=== PATIENT | male | born 1995 ===

== ENCOUNTER 2017-02-28 23:06 | Observation (INO) | payer OTHER ==
[~2017-02-28] VITALS: Ht 182.9 cm; Wt 89.8 kg
[2017-02-28] MEDS ORDERED: ONDANSETRON INJ 2 MG/ML 2 ML VIAL IV STA (23:57)
[2017-02-28] MEDS ORDERED: SODIUM CHLORIDE 0.9% 1000ML 1,000 ML IV STA (23:57)
[2017-02-28] MEDS ORDERED: MoRPHine SULFATE 10 MG/ML CARP/VIAL IV STA (23:57)
[2017-03-01] MEDS ORDERED: FINA5TAB4 PO (00:09)
[2017-03-01] MEDS ORDERED: CETI10TA84 PO (00:09)
[2017-03-01] MEDS ORDERED: MoRPHine SULFATE 2 MG/ML CARP ONE (00:09)
[2017-03-01] MEDS ORDERED: MoRPHine SULFATE 4 MG/ML 1 ML CARP\\VIAL ONE (00:10)
[2017-03-01 00:11] LABS: BASO % 0.1 %; BASO ABS # 0.02 K/uL (0-0.2); COMPLETE YES; EOS % 0.4 %; HEMATOCRIT 45.1 % (42-52); IG% 0.2 %; LYMPH % 13.6 %; LYMPH ABS # 1.86 K/uL (1.2-3.4); MEAN CELL VOLUME 86.9 fL (80-100); MEAN CORPUSCULAR HEMOGLOBIN 29.7 pg (25-34); MEAN CORPUSCULAR HGB CONC 34.1 g/dl (32-36); MEAN PLATELET VOLUME 10.5 fL (7.4-10.4); MONO % 5.2 %; NEUT % 80.5 %; PLATELET COUNT 176 K/uL (130-400); RED BLOOD COUNT 5.19 M/uL (4.7-6.1); WHITE BLOOD COUNT 13.67 K/uL (4.8-10.8)
[2017-03-01] MEDS ORDERED: OPTIRAY 320 IV PRN (00:15)
[2017-03-01 00:28] LABS: BUN/CREATININE RATIO 13.9 (10-20); CALCIUM 9.3 mg/dl (8.5-10.1); CREATININE 1.2 mg/dl (0.60-1.40); POTASSIUM 3.4 mmol/L (3.5-5.1)
[2017-03-01 00:31] LABS: ALB/GLOB RATIO 1.3 (0.9-2)
[2017-03-01] MEDS ORDERED: HYDROmorphone INJ 0.5 MG/0.5 ML SYR IV STA (00:36)
--- NOTE | 2017-03-01 02:33 | EMERGENCY ROOM VISIT NOTE ---
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 The patient reports that he has had intense pain in the right lower abdomen which began approximately 3 hours ago. He reports it has gradually worsened. He states that he has had associated shivering. The pain is worse when he is lying down or standing. He rates the discomfort a 9/10. He denies any nausea, vomiting, changes in bowel movements or urinary symptoms. He denies fevers/chills. He denies any history of abdominal surgery. Review of Systems A complete 10-point Review of Systems was discussed with the patient, with pertinent positives and negatives listed in the History of Present Illness. All remaining Review of Systems questions can be considered negative unless otherwise specified. Past Medical/Surgical History Medical Problems: (1) Acute appendicitis Social History Smoking Status: Never Smoker Current/Historical Medications Scheduled Cetirizine (Zyrtec), 10 MG PO DAILY Finasteride (Proscar), 5 MG PO DAILY Allergies Coded Allergies: No Known Allergies (Unverified , 03/01/17) Physical Exam Vital Signs Date Time Temp Pulse Resp B/P Pulse Ox O2 Delivery O2 Flow Rate FiO2 03/01/17 05:10 81 20 130/81 100 03/01/17 03:30 89 18 134/76 99 Room Air 03/01/17 01:08 96 16 161/103 98 Room Air 02/28/17 23:11 36.3 100 18 147/77 99 Room Air Physical Exam VITALS: Vitals are noted on the nurse's note and reviewed by myself. Vital signs stable. GENERAL: This is a 21-year-old male, in no acute distress but appears to be in pain, nondiaphoretic, well-developed well-nourished. SKIN: Capillary reflex less than 2 seconds. HEENT: Normocephalic. PERRLA. EOMI. Nares patent. Mucous membranes moist. Neck is supple without nuchal rigidity. HEART: Regular rate and rhythm without murmurs gallops or rubs. LUNGS: Clear to auscultation bilaterally without wheezes, rales or rhonchi. ABDOMEN: Positive bowel sounds x 4. Soft, nondistended. There is moderate tenderness to palpation of the right lower quadrant. No guarding or rebound tenderness. NEURO: Patient was alert and oriented to person place and time. Medical Decision & Procedures ER Provider Diagnostic Interpretation: CT ABDOMEN & PELVIS: The appendix is dilated to approximately 1.1 cm in caliber. There is periappendiceal edema and minimal wall thickening. Findings are compatible with acute appendicitis. No definite evidence for abscess formation or perforation at this time. Remainder of examination shows no definite evidence for additional acute inflammatory process. Radiologist: Jaspal Larson MD Laboratory Results 02/28/17 23:55 Red Blood Count 5.19, Mean Corpuscular Volume 86.9, Mean Corpuscular Hemoglobin 29.7, Mean Corpuscular Hemoglobin Concent 34.1, Mean Platelet Volume 10.5, Neutrophils (%) (Auto) 80.5, Lymphocytes (%) (Auto) 13.6, Monocytes (%) (Auto) 5.2, Eosinophils (%) (Auto) 0.4, Basophils (%) (Auto) 0.1, Neutrophils # (Auto) 10.99, Lymphocytes # (Auto) 1.86, Monocytes # (Auto) 0.71, Eosinophils # (Auto) 0.06, Basophils # (Auto) 0.02 02/28/17 23:55 Test 02/28/17 23:55 02/28/17 23:58 White Blood Count 13.67 K/uL (4.8-10.8) Red Blood Count 5.19 M/uL (4.7-6.1) Hemoglobin 15.4 g/dL (14.0-18.0) Hematocrit 45.1 % (42-52) Mean Corpuscular Volume 86.9 fL (80-100) Mean Corpuscular Hemoglobin 29.7 pg (25-34) Mean Corpuscular Hemoglobin Concent 34.1 g/dl (32-36) Platelet Count 176 K/uL (130-400) Mean Platelet Volume 10.5 fL (7.4-10.4) Neutrophils (%) (Auto) 80.5 % Lymphocytes (%) (Auto) 13.6 % Monocytes (%) (Auto) 5.2 % Eosinophils (%) (Auto) 0.4 % Basophils (%) (Auto) 0.1 % Neutrophils # (Auto) 10.99 K/uL (1.4-6.5) Lymphocytes # (Auto) 1.86 K/uL (1.2-3.4) Monocytes # (Auto) 0.71 K/uL (0.11-0.59) Eosinophils # (Auto) 0.06 K/uL (0-0.5) Basophils # (Auto) 0.02 K/uL (0-0.2) RDW Standard Deviation 39.1 fL (36.4-46.3) RDW Coefficient of Variation 12.2 % (11.5-14.5) Immature Granulocyte % (Auto) 0.2 % Immature Granulocyte # (Auto) 0.03 K/uL (0.00-0.02) Anion Gap 5.0 mmol/L (3-11) Est Creatinine Clear Calc Drug Dose 107.8 ml/min Estimated GFR () 100.3 Estimated GFR (Non- 86.5 BUN/Creatinine Ratio 13.9 (10-20) Calcium Level 9.3 mg/dl (8.5-10.1) Total Bilirubin 0.5 mg/dl (0.2-1) Aspartate Amino Transf (AST/SGOT) 22 U/L (15-37) Alanine Aminotransferase (ALT/SGPT) 28 U/L (12-78) Alkaline Phosphatase 66 U/L (45-117) Total Protein 8.3 gm/dl (6.4-8.2) Albumin 4.7 gm/dl (3.4-5.0) Globulin 3.6 gm/dl (2.5-4.0) Albumin/Globulin Ratio 1.3 (0.9-2) Lipase 92 U/L (73-393) Urine Color YELLOW Urine Appearance TURBID (CLEAR) Urine pH 8.0 (4.5-7.5) Urine Specific [place] 1.022 (1.000-1.030) Urine Protein NEG (NEG) Urine Glucose (UA) NEG (NEG) Urine Ketones NEG (NEG) Urine Occult Blood NEG (NEG) Urine Nitrite NEG (NEG) Urine Bilirubin NEG (NEG) Urine Urobilinogen NEG (NEG) Urine Leukocyte Esterase NEG (NEG) Urine WBC (Auto) 0 /hpf (0-5) Urine RBC (Auto) 0-4 /hpf (0-4) Urine Hyaline Casts (Auto) 0 /lpf (0-5) Urine Epithelial Cells (Auto) 0-5 /lpf (0-5) Urine Bacteria (Auto) NEG (NEG) Medications Administered Medications (Trade) Dose Ordered Sig/Rosio Route Start Time Stop Time Status Last Admin Dose Admin Sodium Chloride (Nss 1000ml) 1,000 ml @ 999 mls/hr Q1H1M STAT IV 02/28/17 23:57 03/01/17 00:57 DC 03/01/17 00:10 999 MLS/HR Ondansetron HCl (Zofran Inj) 4 mg NOW STAT IV 02/28/17 23:57 03/01/17 00:01 DC 03/01/17 00:09 4 MG Morphine Sulfate (MoRPHine SULFATE INJ) 2 mg STK-MED ONCE .ROUTE 03/01/17 00:09 03/01/17 00:10 DC 03/01/17 00:09 2 MG Morphine Sulfate (MoRPHine SULFATE INJ) 4 mg STK-MED ONCE .ROUTE 03/01/17 00:10 03/01/17 00:11 DC 03/01/17 00:10 4 MG Hydromorphone HCl (Dilaudid Inj) 0.5 mg NOW STAT IV 03/01/17 00:36 03/01/17 00:37 DC 03/01/17 00:47 0.5 MG Cefoxitin Sodium (Mefoxin IV) 2,000 mg NOW STAT IV 03/01/17 04:54 03/01/17 04:59 DC 03/01/17 04:54 2,000 MG Lidocaine HCl (Xylocaine 1% Inj (Local)) 20 ml STK-MED ONCE .ROUTE 03/01/17 05:34 03/01/17 05:35 DC 03/01/17 06:30 20 ML Bupivacaine HCl (Marcaine 0.5% MPF Inj) 30 ml STK-MED ONCE .ROUTE 03/01/17 05:34 03/01/17 05:35 DC 03/01/17 06:30 20 ML ED Course The patient was evaluated as above. Labs were drawn and IV access was obtained. Patient was medicated with 6 mg morphine IV and 4 mg Zofran IV. He was hydrated with 1 L normal saline solution. The patient was complaining of additional pain and was given 0.5 mg Dilaudid with good relief of his pain. CT scan was performed and read by radiology as above. Patient was reevaluated and IVs were discussed. Case was discussed with Dr. Valdez, who agreed to evaluate the patient for surgical intervention. Medical Decision Differential diagnosis includes appendicitis, urinary tract infection, renal calculus, pyelonephritis, cholecystitis, colitis, among others. The patient is a 21-year-old male who presents today complaining of right lower quadrant pain. Labs revealed a leukocytosis of 13.67. No concerning anemia or electrolyte abnormalities. Urinalysis was not suggestive of infection. CT scan showed findings consistent with acute appendicitis. Case was discussed with the general surgeon controlled atmospheric furnace brazer, who agreed to evaluate the patient for surgical intervention. Please see his dictation for operative record and patient disposition. The patient's case was reviewed with Dr. Mcconnell, ED attending physician, who agreed with my assessment and treatment plan. Impression Primary Impression: Acute appendicitis Departure Information Referrals [facility] (PCP) Patient Instructions My [facility]
[2017-03-01 03:03] LABS: URINE APPEARANCE TURBID (CLEAR); URINE BILIRUBIN NEG (NEG); URINE COLOR YELLOW; URINE EPITHELIAL CELL AUTO 0-5 /lpf (0-5); URINE NITRITE NEG (NEG); URINE SPECIFIC GRAVITY 1.022 (1.000-1.030); UROBILINOGEN NEG (NEG); ZZUR CULT IF INDIC CLEAN CATCH NO
[2017-03-01 03:07] LABS: MANUAL MICROSCOPIC REQUIRED? NO; REVIEW REQ? NO
[2017-03-01] MEDS ORDERED: LACTATED RINGER'S 1000ML 1,000 ML IV SCH ×2 (04:54→06:51)
[2017-03-01] MEDS ORDERED: CEFOXITIN SOD 2 GM VIAL IV STA (04:54)
--- NOTE | 2017-03-01 04:54 | History and Physical ---
History & Physical Date & Time of Service: Mar 01, 2017 at 04:47 Chief Complaint: Intense Abdominal Pains, Shivering Primary Care Physician: [facility] History of Present Illness Source: patient The patient is a 21 year old male who presents to the Emergency Room with complaints of right lower quadrant abdominal pain. The patient reports that he has had intense pain in the right lower abdomen which began approximately 3 hours ago. He reports it has gradually worsened. He states that he has had associated shivering. The pain is worse when he is lying down or standing. He rates the discomfort a 9/10. He denies any nausea, vomiting, changes in bowel movements or urinary symptoms. He denies fevers/chills. He denies any history of abdominal surgery.I exam pt and reviewed CT scan-Dx acute appendicitis, pt is still have RLQ pain,with nausea, no vomiting, I called pt dad who also agrees to do appendectomy, Social History Smoking Status: Never Smoker Smokeless Tobacco Use: No Alcohol Use: none Drug Use: none Allergies Coded Allergies: No Known Allergies (Unverified , 03/01/17) Home Medications Scheduled Cetirizine (Zyrtec), 10 MG PO DAILY Finasteride (Proscar), 5 MG PO DAILY Review of Systems Constitutional: No chills, No fatigue, No fever, No problem reported, No sweats , No weakness, No weight loss Eyes: No diplopia, No discharge, No eye pain, No problem reported, No redness, No worsening of vision ENT: No dental problems, No hearing loss, No nasal symptoms, No problem reported, No sore throat, No tinnitus, No trouble swallowing, No unusual epistaxis Respiratory: No cough, No dyspnea at rest, No dyspnea on exertion, No hemoptysis, No problem reported, No shortness of breath, No sputum, No wheezing Cardiovascular: No PND, No chest pain, No claudication, No edema, No orthopnea , No palpitations, No problem reported Abdomen: + nausea, + pain Musculoskeletal: No calf pain, No joint pain, No muscle pain, No problem reported, No swelling Genitourinary - Male: No dysuria, No hematuria, No impotence, No lesions, No penile discharge, No problem reported, No urinary frequency, No urinary hesitancy, No urinary incontinence, No urinary retention, No urinary urgency Neurologic: No balance problems, No memory loss, No numbness/tingling, No paralysis, No problem reported, No vertigo, No weakness Psychiatric: No anhedonism, No anxiety, No depression symptoms, No insomnia, No problem reported, No substance abuse Endocrine: No excessive thirst, No excessive urination, No fatigue, No problem reported Hematologic / Lymphatic: No abnormal bleeding/bruising, No clotting problems, No night sweats, No problem reported, No swollen lymph nodes Physical Exam Vital Signs Date Time Temp Pulse Resp B/P Pulse Ox O2 Delivery O2 Flow Rate FiO2 03/01/17 03:30 89 18 134/76 99 Room Air 03/01/17 01:08 96 16 161/103 98 Room Air 02/28/17 23:11 36.3 100 18 147/77 99 Room Air General Appearance: WD/WN, + mild distress Head: normocephalic Eyes: normal inspection ENT: normal ENT inspection Neck: supple, no JVD Respiratory/Chest: chest non-tender, lungs clear, normal breath sounds Cardiovascular: regular rate, rhythm, no edema, no gallop, no JVD, no murmur Abdomen/GI: + tenderness, + guarding (RLQ) Extremities/Musculoskelatal: normal inspection, no calf tenderness, normal capillary refill Neurologic/Psych: no motor/sensory deficits, alert, normal mood/affect Skin: normal color, warm/dry, no rash Diagnostics Laboratory Results Results Past 24 Hours Test 02/28/17 23:55 02/28/17 23:58 Range/Units White Blood Count 13.67 4.8-10.8 K/uL Red Blood Count 5.19 4.7-6.1 M/uL Hemoglobin 15.4 14.0-18.0 g/dL Hematocrit 45.1 42-52 % Mean Corpuscular Volume 86.9 80-100 fL Mean Corpuscular Hemoglobin 29.7 25-34 pg Mean Corpuscular Hemoglobin Concent 34.1 32-36 g/dl Platelet Count 176 130-400 K/uL Mean Platelet Volume 10.5 7.4-10.4 fL Neutrophils (%) (Auto) 80.5 % Lymphocytes (%) (Auto) 13.6 % Monocytes (%) (Auto) 5.2 % Eosinophils (%) (Auto) 0.4 % Basophils (%) (Auto) 0.1 % Neutrophils # (Auto) 10.99 1.4-6.5 K/uL Lymphocytes # (Auto) 1.86 1.2-3.4 K/uL Monocytes # (Auto) 0.71 0.11-0.59 K/uL Eosinophils # (Auto) 0.06 0-0.5 K/uL Basophils # (Auto) 0.02 0-0.2 K/uL RDW Standard Deviation 39.1 36.4-46.3 fL RDW Coefficient of Variation 12.2 11.5-14.5 % Immature Granulocyte % (Auto) 0.2 % Immature Granulocyte # (Auto) 0.03 0.00-0.02 K/uL Sodium Level 142 136-145 mmol/L Potassium Level 3.4 3.5-5.1 mmol/L Chloride Level 103 98-107 mmol/L Carbon Dioxide Level 34 21-32 mmol/L Anion Gap 5.0 3-11 mmol/L Blood Urea Nitrogen 17 7-18 mg/dl Creatinine 1.20 0.60-1.40 mg/dl Est Creatinine Clear Calc Drug Dose 107.8 ml/min Estimated GFR () 100.3 Estimated GFR (Non- 86.5 BUN/Creatinine Ratio 13.9 10-20 Random Glucose 99 70-99 mg/dl Calcium Level 9.3 8.5-10.1 mg/dl Total Bilirubin 0.5 0.2-1 mg/dl Aspartate Amino Transf (AST/SGOT) 22 15-37 U/L Alanine Aminotransferase (ALT/SGPT) 28 12-78 U/L Alkaline Phosphatase 66 45-117 U/L Total Protein 8.3 6.4-8.2 gm/dl Albumin 4.7 3.4-5.0 gm/dl Globulin 3.6 2.5-4.0 gm/dl Albumin/Globulin Ratio 1.3 0.9-2 Lipase 92 73-393 U/L Urine Color YELLOW Urine Appearance TURBID CLEAR Urine pH 8.0 4.5-7.5 Urine Specific [place] 1.022 1.000-1.030 Urine Protein NEG NEG Urine Glucose (UA) NEG NEG Urine Ketones NEG NEG Urine Occult Blood NEG NEG Urine Nitrite NEG NEG Urine Bilirubin NEG NEG Urine Urobilinogen NEG NEG Urine Leukocyte Esterase NEG NEG Urine WBC (Auto) 0 0-5 /hpf Urine RBC (Auto) 0-4 0-4 /hpf Urine Hyaline Casts (Auto) 0 0-5 /lpf Urine Epithelial Cells (Auto) 0-5 0-5 /lpf Urine Bacteria (Auto) NEG NEG Diagnostic Radiology CT scan- acute appendicitis Impression Assessment and Plan IMP: Acute appendicitis Plan, pt will have laparoscopic appendectomy, possible open , D/W benefits, risks and alternatives of the procedure, the risks- infection, bleeding, abscess , injury bowel, incisional hernia, pt understood, he agrees with the plan, I answered all questions, ASA Classification: ASA Class I Level of Care Med/Surg VTE Prophylaxis VTE Risk Assessment Done? Y/N: Yes Risk Level: Very Low Given or contraindicated: SCD's
[2017-03-01] MEDS ORDERED: ACETAMINOPHEN 325 MG TAB PO PRN ×2 (05:00→07:00)
[2017-03-01] MEDS ORDERED: OXYCODONE/ACETAMINOPHEN 5-325 TAB PO PRN ×2 (05:00→07:00)
[2017-03-01] MEDS ORDERED: HYDROmorphone INJ 1 MG/ML SYR IV PRN ×2 (05:00→05:30)
[2017-03-01] MEDS ORDERED: MIDAZOLAM HCL 1 MG/ML 2ML VIAL ONE (05:29)
[2017-03-01] MEDS ORDERED: FENTANYL CITRATE INJ 50 MCG/1 ML 2 ML VIAL ONE (05:29)
[2017-03-01] MEDS ORDERED: LABETALOL HCL IV 5 MG/ML 20ML IV PRN (05:30)
[2017-03-01] MEDS ORDERED: ONDANSETRON INJ 2 MG/ML 2 ML VIAL IV PRN ×2 (05:30→07:00)
[2017-03-01] MEDS ORDERED: EpHEDrine SULFATE INJ 50 MG/ML AMP IV PRN (05:30)
[2017-03-01] MEDS ORDERED: MEPERIDINE HCL 25 MG/ML CARP IV PRN (05:30)
[2017-03-01] MEDS ORDERED: ATROPINE SULFATE 0.1 MG/ML 5ML SYR IV PRN (05:30)
[2017-03-01] MEDS ORDERED: BUPIVACAINE 0.5 % 5 MG/1 ML MPF 30ML VIAL ONE (05:34)
[2017-03-01] MEDS ORDERED: LIDOCAINE HCL 1% 20 ML VIAL ONE (05:34)
[2017-03-01] MEDS ORDERED: BACITRACIN OINT 15 GM TUBE ONE (05:35)
[2017-03-01] MEDS ORDERED: IV FLUIDS COMPLETED PRN (06:45)
--- NOTE | 2017-03-01 06:51 | [facility] Post Operative Brief Note ---
Immediate Operative Summary Operative Date Mar 01, 2017. Pre-Operative Diagnosis Acute Appendicitis Post-Operative Diagnosis Acute Appendicitis Procedure(s) Performed Laparoscopic Appendectomy Surgeon Dr. Valdez Car Stereo Installer Surgeon(s) life science technician Estimated Blood Loss 10ml Findings acute appendicitis Fluids (cc crystalloids) 1000ml Specimens A. Appendix Drains none Anesthesia general Complication(s) None Disposition Recovery Room / PACU
[2017-03-01] MEDS ORDERED: HYDROmorphone INJ 2 MG/ML SYR/VIAL IV PRN (07:00)
[2017-03-01] MEDS ORDERED: PROPOFOL IV EMULSION 10 MG/ML 20 ML VIAL IV ONE (07:22)
[2017-03-01] MEDS ORDERED: LIDOCAINE HCL 2% 2 ML VIAL (20MG/ML) ONE (07:22)
[2017-03-01] MEDS ORDERED: ROCURONIUM BROMID 50MG/5ML SYR ONE (07:22)
[2017-03-01] MEDS ORDERED: ONDANSETRON INJ 2 MG/ML 2 ML VIAL ONE (07:23)
[2017-03-01] MEDS ORDERED: NEOSTIGMINE METHYLSULFATE 5 MG/5 ML SYR ONE (07:23)
[2017-03-01] MEDS ORDERED: GLYCOPYRROLATE INJ 0.2 MG/ML VIAL ONE (07:23)
--- NOTE | 2017-03-01 07:30 | DIAGNOSTIC IMAGING REPORT ---
ABDOMEN AND PELVIS CT WITH IV AND ORAL CONTRAST CT DOSE: 435.72 mGy.cm HISTORY: Right lower quadrant abdominal pain. TECHNIQUE: Multiaxial CT images of the abdomen and pelvis were performed following the use of intravenous and oral contrast. COMPARISON STUDY: None. FINDINGS: The lung bases are clear. The liver, spleen, gallbladder, pancreas, kidneys, and adrenal glands are within normal limits. No bowel wall thickening or obstruction. The pelvic organs are unremarkable. No suspicious lytic or blastic osseous lesions. The appendix measures up to 9 mm in diameter. There is mild appendiceal wall thickening and mild periappendiceal fat stranding/edema. Therefore, these findings are consistent with acute appendicitis. No perforation or abscess identified at this time. No retroperitoneal lymphadenopathy. IMPRESSION: Acute appendicitis. Electronically signed by: Juaquin Mcmillan M.D. 03/01/2017 7:28 AM Dictated Date/Time: 03/01/2017 7:25 AM
[2017-03-01] MEDS: FENTANYL CITRATE INJ 50 MCG/1 ML 2 ML VIAL IV PRN ×2 (07:35→07:40)
--- NOTE | 2017-03-01 07:55 | Anesthesiology Progress Note ---
Anesthesia Post Op Note Date & Time Mar 01, 2017 at 07:54 Vital Signs Pain Intensity: 4 Vital Signs Past 12 Hours Date Time Temp Pulse Resp B/P Pulse Ox O2 Delivery O2 Flow Rate FiO2 03/01/17 07:45 76 15 127/73 100 Nasal Cannula 2 03/01/17 07:35 75 15 136/80 99 Nasal Cannula 2 03/01/17 07:25 83 12 139/85 100 Nasal Cannula 2 03/01/17 07:15 83 21 150/89 100 Nasal Cannula 2 03/01/17 07:07 37.0 75 19 147/89 100 Mask 10 03/01/17 05:10 81 20 130/81 100 03/01/17 03:30 89 18 134/76 99 Room Air 03/01/17 01:08 96 16 161/103 98 Room Air 02/28/17 23:11 36.3 100 18 147/77 99 Room Air Notes Mental Status: alert / awake / arousable, participated in evaluation Pt Amnestic to Procedure: Yes Nausea / Vomiting: adequately controlled Pain: adequately controlled Airway Patency, RR, SpO2: stable & adequate BP & HR: stable & adequate Hydration State: stable & adequate Anesthetic Complications: no major complications apparent
[2017-03-01 08:10] VITALS: O2SAT 96; Ht 182.9 cm; Wt 89.8 kg
[2017-03-01 08:40] VITALS: BP 135/89; PULSE 69; O2SAT 98
--- NOTE | 2017-03-01 08:58 | Surgery Progress Note ---
Surgery Progress Note Date of Service Mar 01, 2017. Subjective Post OP Day: + feeling well S/P laparoscopic appendectomy pt is doing fine, no C/O, Objective Vital Signs: Date Time Temp Pulse Resp B/P Pulse Ox O2 Delivery O2 Flow Rate FiO2 03/01/17 08:40 69 16 135/89 98 Room Air 03/01/17 07:55 36.9 74 13 132/69 100 Nasal Cannula 2 03/01/17 07:45 76 15 127/73 100 Nasal Cannula 2 03/01/17 07:35 75 15 136/80 99 Nasal Cannula 2 03/01/17 07:25 83 12 139/85 100 Nasal Cannula 2 03/01/17 07:15 83 21 150/89 100 Nasal Cannula 2 03/01/17 07:07 37.0 75 19 147/89 100 Mask 10 03/01/17 05:10 81 20 130/81 100 03/01/17 03:30 89 18 134/76 99 Room Air 03/01/17 01:08 96 16 161/103 98 Room Air 02/28/17 23:11 36.3 100 18 147/77 99 Room Air General Appearance: WD/WN Head: normocephalic Neck: supple, thyroid normal Respiratory/Chest: chest non-tender, lungs clear Cardiovascular: regular rate, rhythm, no edema, no JVD Abdomen: normal bowel sounds, non tender, non distended, soft Incision(s): clean, dry, intact Extremities: normal range of motion, non-tender, normal inspection Laboratory Results: Results Past 24 Hours Test 02/28/17 23:55 02/28/17 23:58 Range/Units White Blood Count 13.67 4.8-10.8 K/uL Red Blood Count 5.19 4.7-6.1 M/uL Hemoglobin 15.4 14.0-18.0 g/dL Hematocrit 45.1 42-52 % Mean Corpuscular Volume 86.9 80-100 fL Mean Corpuscular Hemoglobin 29.7 25-34 pg Mean Corpuscular Hemoglobin Concent 34.1 32-36 g/dl Platelet Count 176 130-400 K/uL Mean Platelet Volume 10.5 7.4-10.4 fL Neutrophils (%) (Auto) 80.5 % Lymphocytes (%) (Auto) 13.6 % Monocytes (%) (Auto) 5.2 % Eosinophils (%) (Auto) 0.4 % Basophils (%) (Auto) 0.1 % Neutrophils # (Auto) 10.99 1.4-6.5 K/uL Lymphocytes # (Auto) 1.86 1.2-3.4 K/uL Monocytes # (Auto) 0.71 0.11-0.59 K/uL Eosinophils # (Auto) 0.06 0-0.5 K/uL Basophils # (Auto) 0.02 0-0.2 K/uL RDW Standard Deviation 39.1 36.4-46.3 fL RDW Coefficient of Variation 12.2 11.5-14.5 % Immature Granulocyte % (Auto) 0.2 % Immature Granulocyte # (Auto) 0.03 0.00-0.02 K/uL Sodium Level 142 136-145 mmol/L Potassium Level 3.4 3.5-5.1 mmol/L Chloride Level 103 98-107 mmol/L Carbon Dioxide Level 34 21-32 mmol/L Anion Gap 5.0 3-11 mmol/L Blood Urea Nitrogen 17 7-18 mg/dl Creatinine 1.20 0.60-1.40 mg/dl Est Creatinine Clear Calc Drug Dose 107.8 ml/min Estimated GFR () 100.3 Estimated GFR (Non- 86.5 BUN/Creatinine Ratio 13.9 10-20 Random Glucose 99 70-99 mg/dl Calcium Level 9.3 8.5-10.1 mg/dl Total Bilirubin 0.5 0.2-1 mg/dl Aspartate Amino Transf (AST/SGOT) 22 15-37 U/L Alanine Aminotransferase (ALT/SGPT) 28 12-78 U/L Alkaline Phosphatase 66 45-117 U/L Total Protein 8.3 6.4-8.2 gm/dl Albumin 4.7 3.4-5.0 gm/dl Globulin 3.6 2.5-4.0 gm/dl Albumin/Globulin Ratio 1.3 0.9-2 Lipase 92 73-393 U/L Urine Color YELLOW Urine Appearance TURBID CLEAR Urine pH 8.0 4.5-7.5 Urine Specific [place] 1.022 1.000-1.030 Urine Protein NEG NEG Urine Glucose (UA) NEG NEG Urine Ketones NEG NEG Urine Occult Blood NEG NEG Urine Nitrite NEG NEG Urine Bilirubin NEG NEG Urine Urobilinogen NEG NEG Urine Leukocyte Esterase NEG NEG Urine WBC (Auto) 0 0-5 /hpf Urine RBC (Auto) 0-4 0-4 /hpf Urine Hyaline Casts (Auto) 0 0-5 /lpf Urine Epithelial Cells (Auto) 0-5 0-5 /lpf Urine Bacteria (Auto) NEG NEG Assessment & Plan IMP: laparoscopic appendectomy pt is doing fine, pt wants to go home today, I gave pt post-op care instruction , F/U 1 week, regular diet
[2017-03-01] MEDS ORDERED: OXYC-57 PO (08:59)
--- NOTE | 2017-03-01 09:02 | Discharge Instructions ---
Discharge Instructions Date of Service Mar 01, 2017. Admission Reason for Admission: Acute Appendicitis Discharge Discharge Diagnosis / Problem: S/P laparoscopic appendectomy Discharge Goals Goal(s): Decrease discomfort, Improve function Activity Recommendations Activity Limitations: per Instructions/Follow-up section Lifting Limitations: no more than 25 pounds Exercise/Sports Limitations: gradually increase as tolerated May Resume Sexual Activity: when tolerated Shower/Bathe: may shower/bathe in 3 days Driving or Machine Use: resume 3 days after discharge . Instructions / Follow-Up Instructions / Follow-Up keep the dressing on for 4 days, he can take a shower on 03/05/2017, no driving while taking pain medicine, follow up 1 week, Current Hospital Diet Patient's current hospital diet: Clear Liquid Diet Discharge Diet Recommended Diet: Regular Diet Procedures Procedures Performed: Laparoscopic Appendectomy Pending Studies Studies pending at discharge: no Medical Emergencies . Who to Call and When: Medical Emergencies: If at any time you feel your situation is an emergency, please call 911 immediately. . Non-Emergent Contact Non-Emergency issues call your: Surgeon Call Non-Emergent contact if: you have a fever, temperature is above 100.5, your pain is not controlled, your pain is worsening, wound has increased drainage, wound has increased redness . "Provider Documentation" section prepared by Estela Valdez. . VTE Core Measure Inpt VTE Proph given/why not?: SCD's [place] Drug Monitoring Program Search Results: no issues identified
[2017-03-01 09:08] VITALS: BP 127/71; PULSE 72; TEMP 36.8; O2SAT 97
--- NOTE | 2017-03-01 09:30 | OPERATIVE REPORT ---
DATE OF OPERATION: 03/01/2017 PREOPERATIVE DIAGNOSIS: Acute appendicitis. POSTOPERATIVE DIAGNOSIS: Same. PROCEDURE: Laparoscopic appendectomy. SURGEON: Dr. Estela Valdez M.D. ANESTHESIA: General. ESTIMATED BLOOD LOSS: About 10 mL. FINDINGS: Acute appendicitis. COMPLICATIONS: None. INDICATIONS FOR THE PROCEDURE: This is a 21-year-old gentleman who presented to the ED with 1 day history of right lower quadrant pain. The patient had CT scan showing acute appendicitis. We decided to take the patient to the OR to do laparoscopic appendectomy, possible open. I did talk to the patient about the benefit and risk, alternate procedure. I indicated the risks may include but not limited such as bleeding, infection, abscess, incisional hernia, injury to bowel, patient understands. He signed informed consent and I answered all questions. OPERATION AND FINDINGS: DETAILS OF PROCEDURE: We brought the patient to the OR, put the patient in the supine position. The patient received SCD on bilateral legs to prevent DVT. Also, the patient received 2 grams cefoxitin IV for prophylactic antibiotic. The patient received general anesthesia without difficulty. The abdomen was prepped and draped in routine sterile fashion. After timeout, I injection local anesthesia just above the umbilical. Then I made a small incision just above umbilical, opened fascia and opened peritoneum under direct vision. I put a Christy trocar in, connected to CO2 to create pneumoperitoneum. Flow rate at 6 liter per minute. Pressure not more than 14 mmHg. Once we get a nice pneumoperitoneum, we put a 10 mm camera in to look around the abdomen showed normal finding on the stomach, small bowel, large bowel, but the patient had acute appendicitis. Appendix showing inflammation, enlarged. Then, we put another 5 mm trocar on the left side lower quadrant x2. Once all trocars in I put grasper in to mobilize the appendix and then again showing acute appendicitis. Appendix was swollen with edema and inflammation. Then I used the harmonic to take down the appendiceal rechecked no active bleeding. Then I used a 40 mm Endo-KAVITA staple for transection on the base of the appendix, rechecked no active bleeding, no leak. Then we removed the appendix through the catch bag and then we reinserted Christy trocar to create pneumoperitoneum again, looked around the abdomen and no injury to bowel and no active bleeding, no leak on the staple line, then we removed all trocars under direct vision. No active bleeding from trocar sites. The pneumoperitoneum was released. Then I used #1 Vicryl [id number] x2 to close the umbilical incision, fascial layer and then closed subcutaneous layer by using 2-0 Vicryl, closed skin by using 4-0 Monocryl. Then we closed another two 5 mm trocar site skin only by using 4-0 Monocryl. Then we put the dressing on. The patient tolerated the procedure well. All the instrument, needle and sponge count correct x2 at the end of case. Specimen sent to pathology. The patient transferred to recovery room in stable condition. I attest to the content of the Intraoperative Record and any orders documented therein. Any exceptions are noted below. MTDD
[2017-03-01 10:08] VITALS: BP 110/71; PULSE 57; O2SAT 97
[2017-03-01 11:10] VITALS: BP 129/75; PULSE 68; O2SAT 98
[2017-03-01] MEDS ORDERED: CEFOXITIN IV 2,000 MG in DEXTROSE 5% 50ML 50 ML IV SCH (12:00)
[2017-03-01 13:39] VITALS: BP 129/75; PULSE 68; TEMP 36.8; O2SAT 98
--- NOTE | 2017-03-01 22:24 | DISCHARGE SUMMARY ---
ADMITTING DIAGNOSIS: Acute appendicitis. DISCHARGE DIAGNOSIS: Same. OPERATION: Laparoscopic appendectomy. SURGEON: Dr. Estela Valdez. DETAILS OF DISCHARGE SUMMARY: This is a 21-year-old gentleman, who presented to the ED with a 1-day history of right lower quadrant pain. The patient had a CT scan showing acute appendicitis. We took the patient to the OR, we did a laparoscopic appendectomy in the OR, confirmed the patient has acute appendicitis. After the procedure, the patient was doing fine and transported to recovery room in a stable condition and later on, transported to the regular floor. The patient doing fine, walking around. PHYSICAL EXAMINATION: VITAL SIGNS: Stable, temperature is 36.8, the heart rate is 68, respiratory rate is 16, blood pressure 129/75. O2 saturation is 98% on room air. GENERAL: The patient is alert, awake, oriented x3. No distress. HEENT: With normal limitation. NEUROLOGIC EXAMINATION: Intact. NECK: No JVD. CHEST: Bilateral lung sounds clear. HEART: Normal S1, S2. No murmur. ABDOMEN: Soft, slight incisional tenderness, no rebound pain. No distended abdomen. All the incisions are dry and intact with the dressing. EXTREMITIES: No edema. PLAN: Patient wants to go home and I gave patient the postop care instructions. The patient understands. I will follow the patient in 1 week.
== END 2017-03-01 14:20 | disposition home or self-care (01) ==
LOC: ENRESERVDT → ENRESERV → ENRESERVTM → C.EDB 23:07 → C.MSW 03-01 04:58
PROVIDERS: ADMIT Surgery; ATTEND Surgery
DX: K35.80 Unspecified acute appendicitis (principal)

== ENCOUNTER 2018-02-25 01:33 | Emergency (ER) | payer BC, OTHER ==
[~2018-02-25] VITALS: Ht 182.9 cm; Wt 100.0 kg
[~2018-02-25 01:33] MED LIST: CETI10TA84 PO; FINA5TAB4 PO
[2018-02-25 01:37] VITALS: TEMP 36.7; Ht 182.9 cm; Wt 100.0 kg
[2018-02-25] MEDS ORDERED: ALBUT/IPRATROP 3MG/0.5MG NEB 3 ML VIAL INH ONE (02:00)
[2018-02-25] MEDS ORDERED: PRED50TA PO (02:44)
[2018-02-25] MEDS ORDERED: ALBUTEROL HFA 8 GM INHALER INH ONE (02:45)
[2018-02-25 03:04] VITALS: BP 131/78; PULSE 84; O2SAT 98
--- NOTE | 2018-02-25 06:52 | DIAGNOSTIC IMAGING REPORT ---
CHEST 2 VIEWS ROUTINE CLINICAL HISTORY: Cough. Wheezing cough COMPARISON STUDY: No previous studies for comparison. FINDINGS: The bones soft tissues and hemidiaphragms are normal. The cardiomediastinal silhouette is normal. The lungs are clear. The pulmonary vasculature is normal. IMPRESSION: Negative chest. The above report was generated using voice recognition software. It may contain grammatical, syntax or spelling errors. Electronically signed by: Jeff Olmos M.D. 02/25/2018 6:51 AM Dictated Date/Time: 02/25/2018 6:49 AM
--- NOTE | 2018-02-25 23:30 | EMERGENCY ROOM VISIT NOTE ---
History First contact with patient: 01:40 Chief Complaint: COUGH Stated Complaint: HEAVY COUGH,CHEST PAIN Nursing Triage Summary: Pt c/o dry non productive cough for 2-3 days, denies any other symptoms. History of Present Illness The patient is a 22 year old male who presents to the Emergency Room with complaints of a worsening nonproductive cough over the past 3 days. The patient reports a history of flulike symptoms about 10 days ago that improved very quickly. He continues to have this persistent, and now worsening cough that makes it difficult for him to sleep. The patient has not had fever or chills. He does not have a history of asthma. He does have some posttussive chest discomfort. He rates his current discomfort a 4/10 at rest and that worsens when he is coughing. His symptoms are not significantly improved with [id number] Delsym. Review of Systems More than 10 systems were reviewed and otherwise negative with the exception of history of present illness. Past Medical/Surgical History Medical Problems: (1) Acute appendicitis Family History No pertinent family history Social History Smoking Status: Never Smoker Drug Use: none Current/Historical Medications Scheduled Prednisone (Prednisone), 50 MG PO DAILY Physical Exam Vital Signs Date Time Temp Pulse Resp B/P (MAP) Pulse Ox O2 Delivery O2 Flow Rate FiO2 02/25/18 03:04 84 16 131/78 98 02/25/18 01:37 36.7 79 17 125/72 96 Room Air Physical Exam VITALS: Vitals are noted on the nurse's note and reviewed by myself. Vital signs stable. GENERAL: Well-developed, well-nourished, male, who is in no acute distress and resting comfortably. Patient is cooperative with the examination. HEART: Regular rate and rhythm without murmurs gallops or rubs. LUNGS: Scattered wheezing heard bilaterally. No significant crackles. Dry cough is appreciated. ABDOMEN: Positive normal bowel sounds x 4. Soft, nontender, without masses or organomegaly. No guarding or rebound tenderness. MUSCULOSKELETAL: No muscle atrophy, erythema, or edema noted. No calf tenderness. Medical Decision & Procedures ER Provider Diagnostic Interpretation: CHEST 2 VIEWS ROUTINE CLINICAL HISTORY: Cough. Wheezing cough COMPARISON STUDY: No previous studies for comparison. FINDINGS: The bones soft tissues and hemidiaphragms are normal. The cardiomediastinal silhouette is normal. The lungs are clear. The pulmonary vasculature is normal. IMPRESSION: Negative chest. Medications Administered Medications (Trade) Dose Ordered Sig/Rosio Route Start Time Stop Time Status Last Admin Dose Admin Albuterol/ Ipratropium (Duoneb) 3 ml NOW ONCE INH 02/25/18 02:00 02/25/18 02:01 DC 02/25/18 01:55 3 ML Albuterol (Ventolin Hfa Inhaler) 2 puffs NOW ONCE INH 02/25/18 02:45 02/25/18 02:46 DC 02/25/18 02:59 2 PUFFS ED Course Physical exam and history were performed. Nursing notes, EMR, and Medication List were personally reviewed. Patient appears to have had flulike symptoms about 10 days ago, and now has a worsening cough over the past 2 or 3 days. The patient does have some wheezing on examination. X-ray was performed and the patient was treated here in the department with a DuoNeb. The patient's x-ray is as above and was reviewed by myself and radiology as showing no significant acute process. Patient did have improvement of his symptoms after the DuoNeb. Overall I suspect his symptoms to be most consistent with a URI or possibly bronchitis/chest cold. I will give him an albuterol inhaler and a short course of steroids. The patient is to follow with his primary care physician for further care management. He was otherwise invited back to the ER with any new, worsening, or concerning symptoms. The chart was completed utilizing [employer] Speech Voice Recognition Software. Grammatical errors, random word insertions, pronoun errors, and incomplete sentences are an occasional consequence of this system due to software limitations, ambient noise, and hardware issues. Any formal questions or concerns about the content, text, or information contained within the body of this dictation should be directly addressed to the provider for clarification. . Medical Decision Differential diagnosis: Etiologies such as infections, reactive airway disease, pneumonia, pneumothorax , COPD, CHF, cardiac ischemia, pulmonary embolism, musculoskeletal, gastrointestinal, as well as others were entertained. Impression Primary Impression: Cough Departure Information Dispostion Home / Self-Care Condition GOOD Prescriptions Prednisone (Prednisone) 50 Mg Tab 50 MG PO DAILY for 4 Days, #4 TAB Prov: Jacoby Fiore PA-C 02/25/18 Referrals [facility] (PCP) Forms HOME CARE DOCUMENTATION FORM, IMPORTANT VISIT INFORMATION Patient Instructions My [facility] Additional Instructions You were seen and evaluated today on an emergency basis only. This is not a substitute for, or an effort to provide, complete comprehensive medical care. It is not possible to recognize and treat all injuries or illnesses in a single emergency department visit. For this reason it is recommended that you followup with your primary care physician in the next week for recheck of your condition. Take prednisone 50 mg daily for the next 4 days Use your albuterol inhaler. 2 puffs every 4-6 hours as needed You are welcome to return to the emergency department anytime with new, worsening, or concerning symptoms.
== END 2018-02-25 03:04 | disposition home or self-care (01) ==
LOC: C.EDB 01:35 → C.EDA 03:04
DX: R05 Cough (principal)